=== PATIENT | female | born 1935 | race Caucasian/White ===

== ENCOUNTER 2020-12-21 08:38 | Observation (INO) | payer MEDICARE, OTHER ==
[2020-12-21] MEDS ORDERED: Metoclopramide HCl 10 MG/2 ML VIAL ONE (09:40)
[2020-12-21] MEDS ORDERED: diphenhydrAMINE 50 MG/ML VIAL ONE (09:40)
[2020-12-21 09:45] LABS: Bilirubin, Total 0.5 mg/dL (0.2-1.2); Calcium 9.8 mg/dL (7.8-10.44); Chloride 97 mmol/L (98-107); Potassium 3.6 mmol/L (3.5-5.1); Sodium 129 mmol/L (136-145)
[2020-12-21 09:48] LABS: #Monocytes 0.6 10x3/uL (0.0-1.1); #Neutrophils 5.4 10x3/uL (1.5-8.4); %Basophils 0.4 % (0.0-2.0); %Lymphocytes 21.2 % (18.0-47.0); %Monocytes 7.4 % (0.0-10.0); %Neutrophils 70.5 % (40.0-75.0); Hemoglobin 11.6 g/dL (12.0-15.5); Mean Corpuscular HGB CONC 33.4 g/dL (32.0-36.0); Mean Corpuscular Hemoglobin 29.7 pg (27.0-33.0); Mean Corpuscular Volume 88.7 fl (81.6-98.3); Mean Platelet Volume 10.8 fl (7.4-10.4); Platelet Count 197 10x3/uL (150-450); RBC Distribution Width 13.8 % (11.5-14.5); Red Blood Cell (RBC) Count 3.91 10x6/uL (3.90-5.03); White Blood Cell (WBC) Count 7.7 10x3/uL (3.5-10.5)
[2020-12-21 10:02] LABS: ALT (SGPT) 8 U/L (8-55); AST (SGOT) 14 U/L (5-34); Albumin 3.9 g/dL (3.4-4.8); Alkaline Phosphatase 70 U/L (40-110); BUN (Urea Nitrogen) 18 mg/dL (9.8-20.1); Calc. Creatinine Clearance 0 mL/min (70-130); Carbon Dioxide 23 mmol/L (23-31); Globulin 2.5 g/dL (2.4-3.5); Glucose 173 mg/dL (83-110); Protein, Total 6.4 g/dL (5.8-8.1)
[2020-12-21] MEDS ORDERED: hydrALAZINE 20 MG/ML VIAL ONE (10:50)
[2020-12-21] MEDS ORDERED: Ondansetron PF 4 MG/2 ML Vial IVP PRN (11:16)
[2020-12-21] MEDS ORDERED: Acetaminophen 325 MG TAB PO PRN (11:16)
[2020-12-21] MEDS ORDERED: ALPRAZolam 0.5 MG TAB PO PRN (11:19)
[2020-12-21] MEDS ORDERED: Diphenoxylate HCl/Atropine Tablet PO PRN (11:19)
[2020-12-21] MEDS ORDERED: Fioricet 325/50/40 mg Tablet PO PRN (11:19)
[2020-12-21] MEDS ORDERED: Zolpidem Tartrate 5 MG TAB PO PRN (11:23)
[2020-12-21] MEDS ORDERED: hydrALAZINE 20 MG/ML VIAL SLOW IVP PRN (12:17)
[2020-12-21 12:26] VITALS: BMI 23.3
[2020-12-21 13:14] LABS: Troponin I Less than 0.010 ng/mL (< 0.028)
[2020-12-21] MEDS: Lactated Ringer's 1,000 ML IV SCH (13:30)
[2020-12-21] MEDS: Dronedarone HCl 400 MG TAB PO SCH (16:37)
[2020-12-21 16:44] LABS: Troponin I 0.022 ng/mL (< 0.028)
[2020-12-21 18:27] LABS: SARS-CoV-2 NAA Rapid Test Not Detected (NotDetected)
[2020-12-21 19:24] LABS: Anion Gap 13 mmol/L (10-20)
[2020-12-21] MEDS ORDERED: Atorvastatin Calcium 10 MG TAB PO SCH (21:00)
[2020-12-21] MEDS ORDERED: Famotidine 20 MG TAB PO SCH (21:00)
[2020-12-21] MEDS: Apixaban 5 MG TAB PO SCH (21:24)
[2020-12-21] MEDS: cloNIDine 0.1 MG TAB PO SCH (21:25)
[2020-12-22] MEDS: Lactated Ringer's 1,000 ML IV SCH (03:48)
[2020-12-22 04:26] LABS: #Basophils 0.1 10x3/uL (0.0-0.2); #Monocytes 0.6 10x3/uL (0.0-1.1); #Neutrophils 3.7 10x3/uL (1.5-8.4); %Basophils 0.7 % (0.0-2.0); %Lymphocytes 40.6 % (18.0-47.0); %Monocytes 8.4 % (0.0-10.0); Hemoglobin 10.4 g/dL (12.0-15.5); Mean Corpuscular Hemoglobin 29.7 pg (27.0-33.0); Mean Corpuscular Volume 87.4 fl (81.6-98.3); Platelet Count 173 10x3/uL (150-450); RBC Distribution Width 13.8 % (11.5-14.5); White Blood Cell (WBC) Count 7.4 10x3/uL (3.5-10.5)
[2020-12-22 04:40] LABS: Anion Gap 12 mmol/L (10-20); BUN (Urea Nitrogen) 18 mg/dL (9.8-20.1); Calc. Creatinine Clearance 29 mL/min (70-130); Calcium 9.6 mg/dL (7.8-10.44); Carbon Dioxide 25 mmol/L (23-31); Chloride 108 mmol/L (98-107); Glucose 98 mg/dL (83-110); Potassium 3.7 mmol/L (3.5-5.1); Sodium 141 mmol/L (136-145)
[2020-12-22] MEDS ORDERED: Levothyroxine Sodium 75 MCG TAB PO SCH (06:00)
[2020-12-22 08:26] VITALS: BP 132/63; TEMP 98.4
[2020-12-22] MEDS ORDERED: Losartan Potassium 50 MG TAB PO SCH (09:00)
[2020-12-22] MEDS ORDERED: Amlodipine 10 MG TAB PO SCH (09:00)
[2020-12-22] MEDS: Apixaban 5 MG TAB PO SCH (09:08)
[2020-12-22] MEDS: cloNIDine 0.1 MG TAB PO SCH (09:08)
[2020-12-22] MEDS: Dronedarone HCl 400 MG TAB PO SCH (09:08)
[2020-12-22] MEDS ORDERED: Famotidine 20 MG TAB PO SCH (21:00)
== END 2020-12-22 11:20 | disposition home or self-care (01) ==
LOC: CSHERS 08:38 → INTOOBSV 11:09 → CSHTELE 11:09
PROVIDERS: ADMIT Internal Medicine; ATTEND Physician Assistant Medical
DX: I16.0 Hypertensive urgency (principal); R51.9 Headache, unspecified; E87.1 Hypo-osmolality and hyponatremia; R07.9 Chest pain, unspecified; E03.9 Hypothyroidism, unspecified; I48.91 Unspecified atrial fibrillation; Z86.711 Personal history of pulmonary embolism; E78.5 Hyperlipidemia, unspecified; J44.9 Chronic obstructive pulmonary disease, unspecified; N17.9 Acute kidney failure, unspecified; I12.9 Hypertensive chronic kidney disease with stage 1 through stage 4 chronic kidney disease, or unspecified chronic kidney disease; N18.30 Chronic kidney disease, stage 3 unspecified; Z20.822 Contact with and (suspected) exposure to COVID-19; F17.210 Nicotine dependence, cigarettes, uncomplicated; Z79.01 Long term (current) use of anticoagulants; Z79.51 Long term (current) use of inhaled steroids; Z79.899 Other long term (current) drug therapy; Z88.6 Allergy status to analgesic agent; Z88.1 Allergy status to other antibiotic agents; Z88.5 Allergy status to narcotic agent; Z88.8 Allergy status to other drugs, medicaments and biological substances
CPT/HCPCS: 70450; 71045; 80048; 80053; 84484 ×2; 85025 ×2; 93005; 93306; 94640 ×3; 94760; 96365; 96375 ×2; 96376; 99285; G0378 ×3; U0002; J0360; J1200; J2405; J2765; J7620

== ENCOUNTER 2021-05-11 01:53 | Emergency (ER) | payer MEDICARE, OTHER ==
[2021-05-11] MEDS ORDERED: Ondansetron PF 4 MG/2 ML Vial ONE (02:09)
[2021-05-11] MEDS ORDERED: Morphine 4 MG/ML VIAL ONE ×3 (02:09→05:02)
[2021-05-11 02:13] LABS: #Monocytes 0.4 10x3/uL (0.0-1.1); %Basophils 0.2 % (0.0-2.0); %Lymphocytes 6.6 % (18.0-47.0); %Monocytes 2.9 % (0.0-10.0); %Neutrophils 89.8 % (40.0-75.0); Hemoglobin 12.7 g/dL (12.0-15.5); Mean Corpuscular Hemoglobin 30.5 pg (27.0-33.0); Mean Corpuscular Volume 87.3 fl (81.6-98.3); Mean Platelet Volume 10.5 fl (7.4-10.4); Platelet Count 199 10x3/uL (150-450); RBC Distribution Width 13.5 % (11.5-14.5); Red Blood Cell (RBC) Count 4.16 10x6/uL (3.90-5.03); White Blood Cell (WBC) Count 14.5 10x3/uL (3.5-10.5)
[2021-05-11 02:29] LABS: ALT (SGPT) 11 U/L (8-55); AST (SGOT) 17 U/L (5-34); Albumin 4.3 g/dL (3.4-4.8); Alkaline Phosphatase 77 U/L (40-110); Anion Gap 15 mmol/L (10-20); BUN (Urea Nitrogen) 19 mg/dL (9.8-20.1); Bilirubin, Total 0.9 mg/dL (0.2-1.2); Calc. Creatinine Clearance 0 mL/min (70-130); Calcium 10.1 mg/dL (7.8-10.44); Carbon Dioxide 23 mmol/L (23-31); Chloride 103 mmol/L (98-107); Globulin 2.6 g/dL (2.4-3.5); Glucose 142 mg/dL (83-110); Potassium 4.4 mmol/L (3.5-5.1); Protein, Total 6.9 g/dL (5.8-8.1); Sodium 137 mmol/L (136-145)
[2021-05-11 03:17] LABS: SARS-CoV-2 NAA Rapid Test Not Detected (NotDetected)
== END 2021-05-11 06:24 | disposition short-term general hospital (02) ==
LOC: CSHERS 01:53
DX: N28.1 Cyst of kidney, acquired (principal); I71.4 Abdominal aortic aneurysm, without rupture; E28.2 Polycystic ovarian syndrome; J90 Pleural effusion, not elsewhere classified; R91.8 Other nonspecific abnormal finding of lung field; K21.9 Gastro-esophageal reflux disease without esophagitis; I10 Essential (primary) hypertension; M19.90 Unspecified osteoarthritis, unspecified site; J44.9 Chronic obstructive pulmonary disease, unspecified; F17.210 Nicotine dependence, cigarettes, uncomplicated; Z20.822 Contact with and (suspected) exposure to COVID-19; Z79.01 Long term (current) use of anticoagulants; Z79.899 Other long term (current) drug therapy
CPT/HCPCS: 71045; 71275; 74174; 80053; 84484; 85025; 93005; U0002; J2270; J2405

== ENCOUNTER → 2022-03-03 | Day surgery (SDC) | payer MEDICARE | LOC: CSHRAD 09:50 | PROVIDERS: ATTEND Internal Medicine Cardiovascular Disease | DX: I48.4 Atypical atrial flutter (principal); R94.01 Abnormal electroencephalogram [EEG] | CPT/HCPCS: 93005; 93010 ==

== ENCOUNTER 2022-03-20 14:08 | Outpatient (CLI) | payer MEDICARE | END 2022-03-20 14:09 | disposition home or self-care (01) | LOC: CSHLAB 14:08 | PROVIDERS: ATTEND Internal Medicine Critical Care Medicine | DX: Z20.822 Contact with and (suspected) exposure to COVID-19 (principal) | CPT/HCPCS: 87811 ==

== ENCOUNTER 2022-03-23 09:16 | Outpatient (CLI) | payer MEDICARE | END 2022-03-23 09:17 | disposition home or self-care (01) | LOC: CSHCP 09:16 | PROVIDERS: ATTEND Internal Medicine Critical Care Medicine | DX: J44.9 Chronic obstructive pulmonary disease, unspecified (principal) | CPT/HCPCS: 94060; 94726; 94729; 94760 ==

== ENCOUNTER 2024-04-08 19:19 | Emergency (ER) | payer MEDICARE ==
[2024-04-08] MEDS ORDERED: diphenhydrAMINE 50 MG/ML VIAL ONE (19:48)
[2024-04-08] MEDS ORDERED: Metoclopramide HCl 10 MG (2 mL) VIAL ONE (19:48)
[2024-04-08 20:30] LABS: #Basophils 0.04 10x3/uL (0.0-0.2); #Monocytes 0.47 10x3/uL (0.0-1.1); #Neutrophils 3.62 10x3/uL (1.5-8.4); %Basophils 0.7 % (0.0-2.0); %Lymphocytes 31.3 % (18.0-47.0); %Monocytes 7.8 % (0.0-10.0); Hematocrit 33.9 % (34.9-44.5); Hemoglobin 11.6 g/dL (12.0-15.5); Mean Corpuscular HGB CONC 34.2 g/dL (32.0-36.0); Mean Corpuscular Hemoglobin 28.9 pg (27.0-33.0); Mean Corpuscular Volume 84.5 fL (81.6-98.3); Mean Platelet Volume 10.5 fL (7.4-10.4); Platelet Count 203 10x3/uL (150-450); RBC Distribution Width 13.7 % (11.5-14.5); Red Blood Cell (RBC) Count 4.01 10x6/uL (3.90-5.03)
[2024-04-08 20:48] LABS: ALT (SGPT) 9 U/L (8-55); AST (SGOT) 16 U/L (5-34); Albumin 3.8 g/dL (3.4-4.8); Alkaline Phosphatase 79 U/L (40-110); Anion Gap 14 mmol/L (10-20); BUN (Urea Nitrogen) 23 mg/dL (9.8-20.1); Bilirubin, Total 0.6 mg/dL (0.2-1.2); Calc. Creatinine Clearance 0 mL/min (70-130); Calcium 10.1 mg/dL (7.8-10.44); Carbon Dioxide 24 mmol/L (23-31); Chloride 102 mmol/L (98-107); Estimated GFR 23; Globulin 3.3 g/dL (2.4-3.5); Glucose 103 mg/dL (83-110); Potassium 4.1 mmol/L (3.5-5.1); Protein, Total 7.1 g/dL (5.8-8.1); Sodium 136 mmol/L (136-145)
[2024-04-08 20:55] LABS: Troponin I 0.025 ng/mL (< 0.028)
== END 2024-04-08 21:09 | disposition home or self-care (01) ==
LOC: CSHERS 19:19
DX: R51.9 Headache, unspecified (principal); F17.210 Nicotine dependence, cigarettes, uncomplicated; J44.9 Chronic obstructive pulmonary disease, unspecified; K21.9 Gastro-esophageal reflux disease without esophagitis; Z79.899 Other long term (current) drug therapy; Z79.51 Long term (current) use of inhaled steroids
CPT/HCPCS: 70450; 80053; 84484; 85025; 93005; 96374; 96375; 99284; J1200; J2765; 36415

== ENCOUNTER 2024-05-07 14:10 | Inpatient (IN) | payer MEDICARE ==
[2024-05-07] MEDS ORDERED: Meclizine HCl 25 MG TAB ONE (15:01)
[2024-05-07 15:12] LABS: #Basophils 0.03 10x3/uL (0.0-0.2); #Monocytes 1.53 10x3/uL (0.0-1.1); %Basophils 0.2 % (0.0-2.0); %Lymphocytes 9.6 % (18.0-47.0); %Monocytes 8.8 % (0.0-10.0); %Neutrophils 80.7 % (40.0-75.0); Hematocrit 30.4 % (34.9-44.5); Hemoglobin 10.2 g/dL (12.0-15.5); Mean Corpuscular HGB CONC 33.6 g/dL (32.0-36.0); Mean Corpuscular Hemoglobin 28.7 pg (27.0-33.0); Mean Corpuscular Volume 85.4 fL (81.6-98.3); Mean Platelet Volume 10.4 fL (7.4-10.4); Platelet Count 177 10x3/uL (150-450); RBC Distribution Width 14.4 % (11.5-14.5); Red Blood Cell (RBC) Count 3.56 10x6/uL (3.90-5.03); White Blood Cell (WBC) Count 17.5 10x3/uL (3.5-10.5)
[2024-05-07 15:23] LABS: INR-International Normal Ratio 1.2; PTT 38.5 sec (22.0-33.0); Prothrombin Time 12.4 sec (9.5-12.1)
[2024-05-07 15:44] LABS: ALT (SGPT) 12 U/L (8-55); AST (SGOT) 17 U/L (5-34); Albumin 3.4 g/dL (3.4-4.8); Alkaline Phosphatase 64 U/L (40-110); Anion Gap 16 mmol/L (10-20); BUN (Urea Nitrogen) 31 mg/dL (9.8-20.1); Bilirubin, Total 1.5 mg/dL (0.2-1.2); Calc. Creatinine Clearance 0 mL/min (70-130); Carbon Dioxide 23 mmol/L (23-31); Chloride 97 mmol/L (98-107); Estimated GFR 20; Globulin 3.3 g/dL (2.4-3.5); Glucose 126 mg/dL (83-110); Potassium 4.5 mmol/L (3.5-5.1); Protein, Total 6.7 g/dL (5.8-8.1); Sodium 131 mmol/L (136-145)
[2024-05-07] MEDS ORDERED: Cefepime 2 GM VIAL ONE (15:58)
[2024-05-07 16:05] LABS: Magnesium 1.9 mg/dL (1.6-2.6)
[2024-05-07] MEDS ORDERED: Benzonatate 100 MG CAP PO PRN (16:58)
[2024-05-07] MEDS ORDERED: Loperamide HCl 2 MG CAP PO PRN (16:58)
[2024-05-07] MEDS ORDERED: Ondansetron ODT 4 MG TAB PO PRN (16:58)
[2024-05-07] MEDS ORDERED: Ondansetron PF 4 MG/2 ML Vial IVP PRN (16:58)
[2024-05-07] MEDS ORDERED: Acetaminophen 500 MG TAB PO PRN (16:58)
[2024-05-07] MEDS: Sodium Chloride 0.9% 1,000 ML IV SCH (18:50)
[2024-05-07 19:19] LABS: Troponin I 0.043 ng/mL (< 0.028)
[2024-05-07] MEDS: metroNIDAZOLE 500 MG in Premix 1 BAG IVPB SCH (20:05)
[2024-05-07] MEDS: Dronedarone HCl 400 MG TAB PO SCH (20:05)
[2024-05-07 21:52] LABS: Troponin I 0.041 ng/mL (< 0.028)
[2024-05-07] MEDS: Apixaban 2.5 MG TAB PO SCH (22:07)
[2024-05-07] MEDS: Famotidine 20 MG TAB PO SCH (22:07)
[2024-05-07] MEDS: Zolpidem Tartrate 5 MG TAB PO PRN (22:21)
[2024-05-08 04:26] LABS: ALT (SGPT) 11 U/L (8-55); AST (SGOT) 15 U/L (5-34); Albumin 2.6 g/dL (3.4-4.8); Alkaline Phosphatase 52 U/L (40-110); Anion Gap 14 mmol/L (10-20); BUN (Urea Nitrogen) 32 mg/dL (9.8-20.1); Bilirubin, Total 0.8 mg/dL (0.2-1.2); Calc. Creatinine Clearance 22 mL/min (70-130); Calcium 8.7 mg/dL (7.8-10.44); Carbon Dioxide 20 mmol/L (23-31); Chloride 104 mmol/L (98-107); Estimated GFR 25; Globulin 2.7 g/dL (2.4-3.5); Glucose 82 mg/dL (83-110); Potassium 4.2 mmol/L (3.5-5.1); Protein, Total 5.3 g/dL (5.8-8.1); Sodium 134 mmol/L (136-145)
[2024-05-08 05:06] LABS: #Basophils 0.02 10x3/uL (0.0-0.2); #Eosinophils 0.13 10x3/uL (0.0-0.5); #Monocytes 0.89 10x3/uL (0.0-1.1); #Neutrophils 6.23 10x3/uL (1.5-8.4); %Basophils 0.2 % (0.0-2.0); %Eosinophils 1.4 % (0.0-6.0); %Lymphocytes 18.8 % (18.0-47.0); %Monocytes 9.9 % (0.0-10.0); %Neutrophils 69.4 % (40.0-75.0); Hematocrit 25.3 % (34.9-44.5); Hemoglobin 8.9 g/dL (12.0-15.5); Mean Corpuscular HGB CONC 35.2 g/dL (32.0-36.0); Mean Corpuscular Hemoglobin 30.1 pg (27.0-33.0); Mean Corpuscular Volume 85.5 fL (81.6-98.3); Mean Platelet Volume 11.1 fL (7.4-10.4); Platelet Count 150 10x3/uL (150-450); RBC Distribution Width 14.6 % (11.5-14.5); Red Blood Cell (RBC) Count 2.96 10x6/uL (3.90-5.03)
[2024-05-08] MEDS: Dronedarone HCl 400 MG TAB PO SCH (09:59)
[2024-05-08] MEDS: Potassium Chloride 10 MEQ TAB PO SCH (10:00)
[2024-05-08] MEDS: Saccharomyces boulardii 250 MG CAP PO SCH (10:00)
[2024-05-08] MEDS: dilTIAZem CD 300 MG CAP PO SCH (10:00)
[2024-05-08] MEDS: Levothyroxine Sodium 75 MCG TAB PO SCH (10:00)
[2024-05-08] MEDS: Cefepime 1 GM in Sodium Chloride 0.9% 100 ML IVPB SCH (16:49)
[2024-05-08] MEDS ORDERED: ALPRAZolam 0.25 MG TAB PO PRN (19:40)
[2024-05-08] MEDS: Albuterol 2.5 MG (3 mL) NEB NEB PRN (20:00)
[2024-05-08] MEDS: ALPRAZolam 0.25 MG TAB PO PRN (21:51)
[2024-05-09 03:29] LABS: #Basophils 0.01 10x3/uL (0.0-0.2); #Monocytes 0.92 10x3/uL (0.0-1.1); #Neutrophils 6.18 10x3/uL (1.5-8.4); %Basophils 0.1 % (0.0-2.0); %Lymphocytes 19.6 % (18.0-47.0); %Monocytes 10.3 % (0.0-10.0); %Neutrophils 69.6 % (40.0-75.0); Hemoglobin 8.9 g/dL (12.0-15.5); Mean Corpuscular Hemoglobin 28.7 pg (27.0-33.0); Mean Corpuscular Volume 87.1 fL (81.6-98.3); Mean Platelet Volume 10.8 fL (7.4-10.4); Platelet Count 150 10x3/uL (150-450); RBC Distribution Width 14.6 % (11.5-14.5); White Blood Cell (WBC) Count 8.9 10x3/uL (3.5-10.5)
[2024-05-09 03:55] LABS: Anion Gap 12 mmol/L (10-20); BUN (Urea Nitrogen) 30 mg/dL (9.8-20.1); Calc. Creatinine Clearance 23 mL/min (70-130); Calcium 9.3 mg/dL (7.8-10.44); Carbon Dioxide 20 mmol/L (23-31); Chloride 107 mmol/L (98-107); Estimated GFR 27; Glucose 115 mg/dL (83-110); Potassium 4.8 mmol/L (3.5-5.1); Sodium 134 mmol/L (136-145)
[2024-05-09 05:34] LABS: Campy jejuni + coli by PCR Negative (Negative); STEC Shiga Toxin 1+2 Negative (Negative); Salmonella spp. by PCR Negative (Negative); Shigella spp + EIEC by PCR Negative (Negative)
[2024-05-09] MEDS ORDERED: Furosemide 20 MG (2 mL) VIAL SLOW IVP SCH (06:30)
[2024-05-09] MEDS: Furosemide 40 MG (4 mL) VIAL SLOW IVP SCH ×2 (06:42→15:02)
[2024-05-09 09:48] VITALS: BMI 24.7
[2024-05-09] MEDS: Cefdinir 300 MG CAP PO SCH (11:49)
[2024-05-09] MEDS: Nitroglycerin 2% Ointment 1 INCH/1 GM Packet TOP SCH (20:45)
[2024-05-09] MEDS: Carvedilol 3.125 MG TAB PO SCH (20:45)
[2024-05-10] MEDS: ALPRAZolam 0.5 MG TAB PO PRN (01:03)
[2024-05-10 04:10] LABS: Anion Gap 15 mmol/L (10-20); BUN (Urea Nitrogen) 24 mg/dL (9.8-20.1); Calc. Creatinine Clearance 24 mL/min (70-130); Calcium 9.9 mg/dL (7.8-10.44); Carbon Dioxide 24 mmol/L (23-31); Chloride 99 mmol/L (98-107); Estimated GFR 28; Glucose 132 mg/dL (83-110); Potassium 4.5 mmol/L (3.5-5.1); Sodium 133 mmol/L (136-145)
[2024-05-10 04:17] LABS: #Basophils 0.03 10x3/uL (0.0-0.2); #Monocytes 1.33 10x3/uL (0.0-1.1); #Neutrophils 8.75 10x3/uL (1.5-8.4); %Basophils 0.3 % (0.0-2.0); %Lymphocytes 12.6 % (18.0-47.0); %Monocytes 11.4 % (0.0-10.0); %Neutrophils 75.2 % (40.0-75.0); Hematocrit 28.2 % (34.9-44.5); Hemoglobin 9.8 g/dL (12.0-15.5); Mean Corpuscular HGB CONC 34.8 g/dL (32.0-36.0); Mean Corpuscular Hemoglobin 29.4 pg (27.0-33.0); Mean Corpuscular Volume 84.7 fL (81.6-98.3); Mean Platelet Volume 10.6 fL (7.4-10.4); Platelet Count 205 10x3/uL (150-450); RBC Distribution Width 14.3 % (11.5-14.5); Red Blood Cell (RBC) Count 3.33 10x6/uL (3.90-5.03); White Blood Cell (WBC) Count 11.6 10x3/uL (3.5-10.5)
[2024-05-10] MEDS: Levothyroxine Sodium 75 MCG TAB PO SCH (06:17)
[2024-05-10] MEDS: Furosemide 40 MG TAB PO SCH (08:34)
[2024-05-10] MEDS: Cefdinir 300 MG CAP PO SCH (08:35)
[2024-05-10] MEDS: cloNIDine 0.1 MG TAB PO SCH (09:39)
[2024-05-10] MEDS: Escitalopram Oxalate 10 mg Tablet PO SCH (09:39)
[2024-05-10] MEDS: Ipratropium/Albuterol 3 ML NEB NEB SCH (13:43)
[2024-05-11 04:21] LABS: #Basophils 0.02 10x3/uL (0.0-0.2); #Monocytes 1.03 10x3/uL (0.0-1.1); #Neutrophils 6.59 10x3/uL (1.5-8.4); %Basophils 0.2 % (0.0-2.0); %Lymphocytes 14.2 % (18.0-47.0); %Monocytes 11.5 % (0.0-10.0); %Neutrophils 73.7 % (40.0-75.0); Hematocrit 25.9 % (34.9-44.5); Hemoglobin 8.7 g/dL (12.0-15.5); Mean Corpuscular HGB CONC 33.6 g/dL (32.0-36.0); Mean Corpuscular Hemoglobin 28.9 pg (27.0-33.0); Mean Platelet Volume 10.6 fL (7.4-10.4); Platelet Count 194 10x3/uL (150-450); RBC Distribution Width 14.1 % (11.5-14.5); Red Blood Cell (RBC) Count 3.01 10x6/uL (3.90-5.03)
[2024-05-11 04:46] LABS: Anion Gap 13 mmol/L (10-20); BUN (Urea Nitrogen) 32 mg/dL (9.8-20.1); Calc. Creatinine Clearance 22 mL/min (70-130); Calcium 9.5 mg/dL (7.8-10.44); Carbon Dioxide 24 mmol/L (23-31); Chloride 99 mmol/L (98-107); Estimated GFR 25; Glucose 111 mg/dL (83-110); Potassium 4.4 mmol/L (3.5-5.1); Sodium 132 mmol/L (136-145)
[2024-05-11 13:58] VITALS: BMI 24.7
[2024-05-12 03:51] LABS: #Basophils 0.02 10x3/uL (0.0-0.2); #Monocytes 0.93 10x3/uL (0.0-1.1); #Neutrophils 5.88 10x3/uL (1.5-8.4); %Basophils 0.2 % (0.0-2.0); %Lymphocytes 14.2 % (18.0-47.0); %Monocytes 11.6 % (0.0-10.0); %Neutrophils 73.3 % (40.0-75.0); Hematocrit 24.8 % (34.9-44.5); Hemoglobin 8.1 g/dL (12.0-15.5); Mean Corpuscular HGB CONC 32.7 g/dL (32.0-36.0); Mean Corpuscular Hemoglobin 28.5 pg (27.0-33.0); Mean Corpuscular Volume 87.3 fL (81.6-98.3); Mean Platelet Volume 10.6 fL (7.4-10.4); Platelet Count 199 10x3/uL (150-450); RBC Distribution Width 14.4 % (11.5-14.5); Red Blood Cell (RBC) Count 2.84 10x6/uL (3.90-5.03)
[2024-05-12 04:02] LABS: Anion Gap 15 mmol/L (10-20); BUN (Urea Nitrogen) 44 mg/dL (9.8-20.1); Calc. Creatinine Clearance 19 mL/min (70-130); Calcium 9.4 mg/dL (7.8-10.44); Carbon Dioxide 22 mmol/L (23-31); Chloride 100 mmol/L (98-107); Estimated GFR 21; Glucose 166 mg/dL (83-110); Potassium 4.6 mmol/L (3.5-5.1); Sodium 132 mmol/L (136-145)
[2024-05-13 06:16] VITALS: TEMP 97.9
[2024-05-13 13:14] VITALS: BP 162/72
== END 2024-05-13 13:29 | disposition home health service (06) | DRG 280 ==
LOC: CSHERS 14:10 → CSHTELE 16:14
PROVIDERS: ADMIT Family Medicine; ATTEND Internal Medicine
DX: I13.0 Hypertensive heart and chronic kidney disease with heart failure and stage 1 through stage 4 chronic kidney disease, or unspecified chronic kidney disease (principal); I50.33 Acute on chronic diastolic (congestive) heart failure; I21.A1 Myocardial infarction type 2; J18.9 Pneumonia, unspecified organism; J96.21 Acute and chronic respiratory failure with hypoxia; N18.4 Chronic kidney disease, stage 4 (severe); N17.9 Acute kidney failure, unspecified; I48.20 Chronic atrial fibrillation, unspecified; E87.1 Hypo-osmolality and hyponatremia; J44.1 Chronic obstructive pulmonary disease with (acute) exacerbation; I35.0 Nonrheumatic aortic (valve) stenosis; E78.5 Hyperlipidemia, unspecified; E03.9 Hypothyroidism, unspecified; R53.81 Other malaise; K52.9 Noninfective gastroenteritis and colitis, unspecified; R53.1 Weakness; I48.0 Paroxysmal atrial fibrillation; K21.9 Gastro-esophageal reflux disease without esophagitis; Z98.890 Other specified postprocedural states; Z90.49 Acquired absence of other specified parts of digestive tract; Z95.2 Presence of prosthetic heart valve; Z79.899 Other long term (current) drug therapy; Z79.890 Hormone replacement therapy; Z79.51 Long term (current) use of inhaled steroids; Z88.8 Allergy status to other drugs, medicaments and biological substances; Z88.2 Allergy status to sulfonamides; Z91.013 Allergy to seafood; Z86.711 Personal history of pulmonary embolism
CPT/HCPCS: 36415; 70450; 71045; 80048; 80053; 82274; 83605; 83630; 83735; 83880; 84484; 85025; 85610; 85730; 87040; 87324; 87449; 87505; 93005; 94640; 94660; 94760; 94762; 96374; J0692; J1940; J7030; J7611; J7620

== ENCOUNTER 2024-06-15 09:39 | Inpatient (IN) | payer MEDICARE ==
[2024-06-15 10:47] LABS: #Basophils 0.06 10x3/uL (0.0-0.2); #Monocytes 0.68 10x3/uL (0.0-1.1); #Neutrophils 5.28 10x3/uL (1.5-8.4); %Basophils 0.8 % (0.0-2.0); %Lymphocytes 18.9 % (18.0-47.0); %Monocytes 9.1 % (0.0-10.0); %Neutrophils 70.8 % (40.0-75.0); Hematocrit 28.8 % (34.9-44.5); Hemoglobin 9.8 g/dL (12.0-15.5); Mean Corpuscular Hemoglobin 29.1 pg (27.0-33.0); Mean Corpuscular Volume 85.5 fL (81.6-98.3); Mean Platelet Volume 10.1 fL (7.4-10.4); Platelet Count 283 10x3/uL (150-450); RBC Distribution Width 15.6 % (11.5-14.5); Red Blood Cell (RBC) Count 3.37 10x6/uL (3.90-5.03); White Blood Cell (WBC) Count 7.5 10x3/uL (3.5-10.5)
[2024-06-15 11:06] LABS: ALT (SGPT) 10 U/L (8-55); AST (SGOT) 19 U/L (5-34); Albumin 3.7 g/dL (3.4-4.8); Alkaline Phosphatase 91 U/L (40-110); Anion Gap 16 mmol/L (10-20); BUN (Urea Nitrogen) 32 mg/dL (9.8-20.1); Bilirubin, Total 0.7 mg/dL (0.2-1.2); Calc. Creatinine Clearance 0 mL/min (70-130); Carbon Dioxide 22 mmol/L (23-31); Chloride 105 mmol/L (98-107); Estimated GFR 28; Globulin 2.9 g/dL (2.4-3.5); Glucose 103 mg/dL (83-110); Potassium 4.4 mmol/L (3.5-5.1); Protein, Total 6.6 g/dL (5.8-8.1); Sodium 139 mmol/L (136-145)
[2024-06-15 11:11] LABS: Troponin I 0.033 ng/mL (< 0.028)
[2024-06-15] MEDS ORDERED: Furosemide 40 MG (4 mL) VIAL ONE (12:22)
[2024-06-15] MEDS ORDERED: Senokot S 8.6-50 MG TAB PO PRN (13:21)
[2024-06-15 14:40] LABS: Magnesium 1.9 mg/dL (1.6-2.6)
[2024-06-15] MEDS ORDERED: Apixaban 5 MG TAB ONE (20:56)
[2024-06-15] MEDS ORDERED: Apixaban 5 MG TAB PO SCH (21:00)
[2024-06-15] MEDS: Apixaban 2.5 MG TAB PO SCH (22:02)
[2024-06-15] MEDS ORDERED: ALPRAZolam 0.5 MG TAB ONE (22:20)
[2024-06-15] MEDS ORDERED: cloNIDine 0.1 MG TAB ONE (22:33)
[2024-06-15] MEDS: cloNIDine 0.1 MG TAB PO SCH (22:41)
[2024-06-15] MEDS: ALPRAZolam 0.5 MG TAB PO SCH (22:41)
[2024-06-15] MEDS: Dronedarone HCl 400 MG TAB PO SCH (22:42)
[2024-06-16] MEDS ORDERED: Atorvastatin Calcium 10 MG TAB ONE (01:20)
[2024-06-16] MEDS: Atorvastatin Calcium 10 MG TAB PO SCH ×2 (01:28→20:39)
[2024-06-16] MEDS ORDERED: Acetaminophen 325 MG TAB ONE (04:10)
[2024-06-16] MEDS: Acetaminophen 325 MG TAB PO PRN (04:15)
[2024-06-16 05:06] LABS: Anion Gap 13 mmol/L (10-20); BUN (Urea Nitrogen) 31 mg/dL (9.8-20.1); Calc. Creatinine Clearance 21 mL/min (70-130); Calcium 9.8 mg/dL (7.8-10.44); Carbon Dioxide 25 mmol/L (23-31); Chloride 105 mmol/L (98-107); Estimated GFR 27; Glucose 95 mg/dL (83-110); Potassium 4.9 mmol/L (3.5-5.1); Sodium 138 mmol/L (136-145)
[2024-06-16] MEDS: Levothyroxine Sodium 75 MCG TAB PO SCH (05:50)
[2024-06-16] MEDS: Furosemide 20 MG (2 mL) VIAL SLOW IVP SCH (05:50)
[2024-06-16] MEDS: Dronedarone HCl 400 MG TAB PO SCH (08:30)
[2024-06-16] MEDS ORDERED: Pantoprazole DR 40 MG TAB ONE (08:46)
[2024-06-16] MEDS ORDERED: Apixaban 2.5 MG TAB ONE (08:46)
[2024-06-16] MEDS ORDERED: cloNIDine 0.1 MG TAB ONE (08:48)
[2024-06-16] MEDS ORDERED: cloNIDine 0.1 MG TAB PO SCH (09:00)
[2024-06-16] MEDS: cloNIDine 0.1 MG TAB PO SCH (09:17)
[2024-06-16] MEDS: Apixaban 2.5 MG TAB PO SCH (09:17)
[2024-06-16] MEDS: Pantoprazole DR 40 MG TAB PO SCH (09:19)
[2024-06-16] MEDS ORDERED: methylPREDNISolone Sod Succ 40 MG VIAL ONE (12:22)
[2024-06-16] MEDS: methylPREDNISolone Sod Succ 40 MG VIAL IVP SCH (12:36)
[2024-06-16 15:30] VITALS: BMI 22.4
[2024-06-16] MEDS ORDERED: PRAVASTATIN SODIUM 40 MG PO SCH (21:00)
[2024-06-16] MEDS: ALPRAZolam 0.5 MG TAB PO PRN (22:25)
[2024-06-17 00:33] LABS: Magnesium 1.7 mg/dL (1.6-2.6); Phosphorus 3.4 mg/dL (2.3-4.7)
[2024-06-17 11:40] LABS: #Basophils 0.01 10x3/uL (0.0-0.2); #Monocytes 0.35 10x3/uL (0.0-1.1); #Neutrophils 7.13 10x3/uL (1.5-8.4); %Basophils 0.1 % (0.0-2.0); %Monocytes 4.2 % (0.0-10.0); Hematocrit 28.3 % (34.9-44.5); Hemoglobin 9.8 g/dL (12.0-15.5); Mean Corpuscular HGB CONC 34.6 g/dL (32.0-36.0); Mean Corpuscular Hemoglobin 28.8 pg (27.0-33.0); Mean Corpuscular Volume 83.2 fL (81.6-98.3); Mean Platelet Volume 9.9 fL (7.4-10.4); Platelet Count 303 10x3/uL (150-450); White Blood Cell (WBC) Count 8.4 10x3/uL (3.5-10.5)
[2024-06-17 11:54] LABS: Free T4 (Free Thyroxine) 1.31 ng/dL (0.70-1.48); Thyroid Stimulating Hormone 0.5261 uIU/mL (0.35-4.94)
[2024-06-17] MEDS ORDERED: Hydrochlorothiazide 25 MG TAB PO PRN (13:07)
[2024-06-17] MEDS ORDERED: hydrALAZINE 20 MG/ML VIAL SLOW IVP SCH (13:15)
[2024-06-17] MEDS: Magnesium 2 GM/50 ML(in water) 2 GM in Premix 1 BAG IVPB SCH (14:04)
[2024-06-17] MEDS: Amlodipine 5 MG TAB PO SCH ×2 (14:29)
[2024-06-17] MEDS ORDERED: hydrALAZINE 25 MG TAB PO SCH (15:00)
[2024-06-17] MEDS: hydrALAZINE 25 MG TAB PO PRN (16:39)
[2024-06-17] MEDS: Ipratropium/Albuterol 3 ML NEB NEB PRN (17:30)
[2024-06-18 04:06] LABS: #Basophils 0.03 10x3/uL (0.0-0.2); #Monocytes 0.93 10x3/uL (0.0-1.1); #Neutrophils 7.55 10x3/uL (1.5-8.4); %Basophils 0.3 % (0.0-2.0); %Lymphocytes 18.6 % (18.0-47.0); %Monocytes 8.9 % (0.0-10.0); %Neutrophils 71.9 % (40.0-75.0); Hemoglobin 9.8 g/dL (12.0-15.5); Mean Corpuscular HGB CONC 33.8 g/dL (32.0-36.0); Mean Corpuscular Hemoglobin 28.7 pg (27.0-33.0); Mean Corpuscular Volume 84.8 fL (81.6-98.3); Mean Platelet Volume 9.9 fL (7.4-10.4); Platelet Count 298 10x3/uL (150-450); RBC Distribution Width 15.4 % (11.5-14.5); Red Blood Cell (RBC) Count 3.42 10x6/uL (3.90-5.03); White Blood Cell (WBC) Count 10.5 10x3/uL (3.5-10.5)
[2024-06-18 04:13] LABS: Anion Gap 16 mmol/L (10-20); BUN (Urea Nitrogen) 35 mg/dL (9.8-20.1); Calc. Creatinine Clearance 24 mL/min (70-130); Carbon Dioxide 28 mmol/L (23-31); Chloride 100 mmol/L (98-107); Estimated GFR 26; Glucose 111 mg/dL (83-110); Magnesium 2.2 mg/dL (1.6-2.6); Potassium 3.7 mmol/L (3.5-5.1); Sodium 140 mmol/L (136-145)
[2024-06-18] MEDS: Amlodipine 5 MG TAB PO SCH (08:38)
[2024-06-18] MEDS ORDERED: Amlodipine 5 MG TAB PO SCH (09:00)
[2024-06-18] MEDS: Potassium Chloride 20 MEQ TAB PO SCH (10:12)
[2024-06-18] MEDS: Enoxaparin 30 MG (0.3 mL) SYRINGE SC SCH (12:23)
[2024-06-18 13:43] LABS: Magnesium 2.1 mg/dL (1.6-2.6)
[2024-06-19 04:37] LABS: #Basophils 0.05 10x3/uL (0.0-0.2); #Monocytes 0.87 10x3/uL (0.0-1.1); %Basophils 0.6 % (0.0-2.0); %Lymphocytes 26.1 % (18.0-47.0); %Monocytes 9.7 % (0.0-10.0); %Neutrophils 63.3 % (40.0-75.0); Hemoglobin 10.7 g/dL (12.0-15.5); Mean Corpuscular HGB CONC 33.4 g/dL (32.0-36.0); Mean Corpuscular Hemoglobin 28.4 pg (27.0-33.0); Mean Corpuscular Volume 84.9 fL (81.6-98.3); Mean Platelet Volume 9.8 fL (7.4-10.4); Platelet Count 276 10x3/uL (150-450); RBC Distribution Width 15.2 % (11.5-14.5); Red Blood Cell (RBC) Count 3.77 10x6/uL (3.90-5.03)
[2024-06-19 04:41] LABS: Anion Gap 13 mmol/L (10-20); BUN (Urea Nitrogen) 28 mg/dL (9.8-20.1); Calc. Creatinine Clearance 30 mL/min (70-130); Carbon Dioxide 27 mmol/L (23-31); Chloride 103 mmol/L (98-107); Estimated GFR 33; Glucose 94 mg/dL (83-110); Potassium 4.1 mmol/L (3.5-5.1); Sodium 139 mmol/L (136-145)
[2024-06-19] MEDS ORDERED: CEFAZOLIN 1 GM VIAL ONE (11:03)
[2024-06-19] MEDS ORDERED: Midazolam HCl 2 mg/2 ml Vial ONE ×2 (11:03→11:57)
[2024-06-19] MEDS ORDERED: fentaNYL 50 mcg/mL 1 mL Vial ONE (11:03)
[2024-06-19] MEDS ORDERED: Gentamicin 80 MG/2 ML VIAL ONE (11:04)
[2024-06-19] MEDS ORDERED: Lidocaine 1% (PF) 30 ML VIAL ONE (11:04)
[2024-06-19] MEDS ORDERED: Iopamidol 300 61% 100 ML VIAL FS ONE (11:33)
[2024-06-19] MEDS: Dronedarone HCl 400 MG TAB PO SCH ×2 (13:40→21:36)
[2024-06-19] MEDS: Losartan 50 MG TAB PO SCH (13:40)
[2024-06-19] MEDS: Cephalexin 500 MG CAP PO SCH (21:36)
[2024-06-20] MEDS: Losartan 50 MG TAB PO SCH (08:57)
[2024-06-20] MEDS: Dronedarone HCl 400 MG TAB PO SCH (08:57)
[2024-06-20 13:42] VITALS: BP 153/75; TEMP 98.5
== END 2024-06-20 14:15 | disposition home or self-care (01) | DRG 981 ==
LOC: CSHERS 09:39 → CSHERHOLD 13:56 → OBSVTOIN 06-16 12:14 → CSHTELE 06-16 15:19
PROVIDERS: ADMIT Internal Medicine; ATTEND Internal Medicine
PROC: 0JH606Z Insertion of Pacemaker, Dual Chamber into Chest Subcutaneous Tissue and Fascia, Open Approach (ICD-10-PCS; principal; 2024-06-19)
PROC: 02H63JZ Insertion of Pacemaker Lead into Right Atrium, Percutaneous Approach (ICD-10-PCS; 2024-06-19)
PROC: 02HK3JZ Insertion of Pacemaker Lead into Right Ventricle, Percutaneous Approach (ICD-10-PCS; 2024-06-19)
DX: J96.21 Acute and chronic respiratory failure with hypoxia (principal); I21.A1 Myocardial infarction type 2; J44.1 Chronic obstructive pulmonary disease with (acute) exacerbation; N18.4 Chronic kidney disease, stage 4 (severe); I13.0 Hypertensive heart and chronic kidney disease with heart failure and stage 1 through stage 4 chronic kidney disease, or unspecified chronic kidney disease; I48.20 Chronic atrial fibrillation, unspecified; I50.22 Chronic systolic (congestive) heart failure; Z66 Do not resuscitate; E78.5 Hyperlipidemia, unspecified; E03.9 Hypothyroidism, unspecified; K21.9 Gastro-esophageal reflux disease without esophagitis; M19.90 Unspecified osteoarthritis, unspecified site; I44.0 Atrioventricular block, first degree; R00.1 Bradycardia, unspecified; I49.5 Sick sinus syndrome; I25.10 Atherosclerotic heart disease of native coronary artery without angina pectoris; Z88.8 Allergy status to other drugs, medicaments and biological substances; Z88.5 Allergy status to narcotic agent; Z91.013 Allergy to seafood; Z88.1 Allergy status to other antibiotic agents; Z88.2 Allergy status to sulfonamides; Z86.711 Personal history of pulmonary embolism; Z87.891 Personal history of nicotine dependence; Z90.710 Acquired absence of both cervix and uterus; Z90.49 Acquired absence of other specified parts of digestive tract; Z95.2 Presence of prosthetic heart valve; Z99.81 Dependence on supplemental oxygen
CPT/HCPCS: 33208; 36415; 71045; 80048; 80053; 83735; 83880; 84100; 84439; 84443; 84484; 85025; 93005; 93010; 93306; 94640; 94760; 94762; 96374; 99152; 99153; C1785; C1898; J0690; J1580; J1650; J1940; J2250; J2919; J3010; J3475; J7620; Q9967